=== PATIENT | male | born 1965 | race Caucasian/White ===

== ENCOUNTER 2023-01-29 09:39 | Outpatient (OUT) | payer SELFPAY ==
[2023-01-29 10:44] LABS: Basophils Absolute Auto 0.1 10^3/uL (0.0-0.1); Basophils Percent Auto 0.9 % (0.2-2.0); Eosinophils Absolute Auto 0.1 10^3/uL (0.0-0.7); Eosinophils Percent Auto 2.1 % (0.9-7.0); Hematocrit 42.4 % (42.0-54.0); Hemoglobin 14.5 g/dL (14.0-18.0); Immature Granulocytes Abs Auto 0.01 10^3/uL (0.00-0.03); Immature Granulocytes Pct Auto 0.2 % (0.0-0.5); Lymphocytes Absolute Auto 2.1 10^3/uL (1.2-3.8); Lymphocytes Percent Auto 35.8 % (20.5-60.0); Mean Corpuscular HGB Conc 34.2 g/dL (29.9-35.2); Mean Corpuscular Hemoglobin 30.8 pg (25.9-34.0); Mean Platelet Volume 10.3 fL (9.5-13.5); Monocytes Absolute Auto 0.5 10^3/uL (0.3-0.8); Monocytes Percent Auto 7.9 % (1.7-12.0); Neutrophils Absolute Auto 3.1 10^3/uL (1.4-6.5); Neutrophils Percent Auto 53.1 % (43.0-75.0); Platelet Count 204 10^3/uL (150-450); Red Blood Count 4.71 10^6/uL (4.70-6.10); Red Cell Distribution Width 12.4 % (11.0-15.0); White Blood Count 5.8 10^3/uL (4.0-11.0)
[2023-01-29 10:47] LABS: Estimated Average Glucose 114 mg/dL; Glycohemoglobin A1C 5.6 % (4.5-6.2)
[2023-01-29 10:52] LABS: Alanine Aminotransferase 23 U/L (16-63); Albumin Globulin Ratio 1.1; Albumin Level 3.8 g/dL (3.4-5.0); Alkaline Phosphatase 70 U/L (46-116); Anion Gap 10.1; Aspartate Amino Transferase 18 U/L (15-37); BUN Creatinine Ratio 14.6; Bilirubin Total 0.5 mg/dL (0.2-1.0); Carbon Dioxide 30.5 mmol/L (21.0-32.0); Chloride 102 mmol/L (98-107); Chol HDL Ratio 3.2; Cholesterol 185 mg/dL (<=200); Estimated GFR (African America >60 (>=60); Estimated GFR (Non-African Ame >60 (>=60); Free T3 3.49 pg/mL (2.18-3.98); Globulin 3.5 g/dL; Glucose 93 mg/dL (74-106); HDL Cholesterol 57 mg/dL (40-60); Potassium 3.6 mmol/L (3.5-5.1); Sodium 139 mmol/L (136-145); Thyroid Stimulating Hormone 2.704 uIU/mL (0.358-3.740); Total Protein 7.3 g/dL (6.4-8.2); Triglycerides 190 mg/dL (<=150); Uric Acid 5.3 mg/dL (3.5-7.2)
[2023-01-29 11:09] LABS: Prostate Specific Antigen Scrn 0.55 ng/mL (<=4.00)
[2023-01-30 10:13] LABS: Insulin 5.9 uIU/mL (2.6-24.9)
== END 2023-01-29 09:40 | disposition home or self-care (01) ==
LOC: LAB 09:47
PROVIDERS: PCP Nurse Practitioner Family; Visit Provider Nurse Practitioner Family
DX: Z00.00 Encounter for general adult medical examination without abnormal findings (principal); Z12.5 Encounter for screening for malignant neoplasm of prostate
CPT/HCPCS: 36415; 80053; 80061; 83036; 83525; 84436; 84443; 84481; 84550; 85025; G0103

== ENCOUNTER 2023-04-16 13:27 | Outpatient (OUT) | payer BC, SELFPAY ==
--- NOTE | 2023-04-16 13:36 | MR_ITS ---
The [address] [address] Patient Name: EDISON MÉNDEZ MRN: [id number] date: 1965 Sex: M Assigned Patient Location: MRI Current Patient Location: MRI Accession/Order Number: [id number] Exam Date: 04/16/2023 13:45 Report Date: 04/16/2023 14:40 At the request of: SHRADDHA ROSARIO Procedure: MR head/brain wo con EXAM: MR head/brain wo con CLINICAL INDICATION: Headache R51.9 COMPARISON: None TECHNIQUE/PROTOCOL: Standard noncontrast protocol brain MRI performed (Sagittal T1 with axial T1, T2, GRE, FLAIR, and diffusion-weighted imaging). FINDINGS: No restricted diffusion, extra-axial fluid collection, hydrocephalus, midline shift, or other mass effect. Intracranial flow voids are maintained. Normal midline structures. Normal marrow signal. No soft tissue abnormalities. Trace scattered paranasal sinus mucosal thickening. Scant right mastoid effusion. MR/MR head/brain wo con IMPRESSION: No acute intracranial process. Electronically authenticated by: ABBY BRENNER Date: 04/16/2023 14:40
--- NOTE | 2023-04-16 13:37 | US_ITS ---
[address] [address] Patient Name: EDISON MÉNDEZ MRN: [id number] date: 1965 Sex: M Assigned Patient Location: MRI Current Patient Location: MRI Accession/Order Number: [id number] Exam Date: 04/16/2023 14:15 Report Date: 04/16/2023 15:47 At the request of: SHRADDHA ROSARIO Procedure: US carotid duplex BI EXAMINATION: US carotid duplex BI HISTORY: Essential Hypertension I10 COMPARISON: No relevant comparison available. TECHNIQUE: Duplex Doppler ultrasound analysis of carotid and vertebral arteries. . Bilateral carotid arterial duplex examination was performed using B-mode, color flow and spectral analysis. Carotid stenosis is reported according to validated velocity parameters, similar to NASCET criteria. FINDINGS: RIGHT CAROTID ARTERY No atherosclerotic plaque Subclavian: PSV: 61.9 cm/s cm/s EDV: 5.3 cm/s cm/s CCA: Prox: PSV: 54.5 cm/s cm/s EDV: 18.2 cm/s cm/s Mid: PSV: 83.1 cm/s cm/s EDV: 27.0 cm/s cm/s Distal: PSV: 72.1 cm/s cm/s EDV: 28.1 cm/s cm/s BULB: PSV: 52.3 cm/s cm/s EDV: 20.4 cm/s cm/s ICA: Prox: PSV: 91.4 cm/s cm/s EDV: 31.7 cm/s cm/s Mid: PSV: 64.0 cm/s cm/s EDV: 25.2 cm/s cm/s Distal: PSV: 76.9 cm/s cm/s EDV: 41.3 cm/s cm/s ECA: PSV: 74.3 cm/s cm/s EDV: 19.3 cm/s cm/s VERTEBRAL: PSV: 36.9 cm/s cm/s EDV: 17.1 cm/s cm/s, antegrade ICA/CCA ratio: PSV: 1.3 EDV: 1.1 LEFT CAROTID ARTERY No atherosclerotic plaque Subclavian: PSV: 87.5 cm/s cm/s EDV: 7.2 cm/s CCA: Prox: PSV: 97.8 cm/s cm/s EDV: 30.5 cm/s Mid: PSV: 72.0 cm/s cm/s EDV: 21.5 cm/s Distal: PSV: 71.9 cm/s cm/s EDV: 29.2 cm/s BULB: PSV: 72.1 cm/s cm/s EDV: 23.2 cm/s ICA: Prox: PSV: 63.3 cm/s cm/s EDV: 33.7 cm/s Mid: PSV: 59.0 cm/s cm/s EDV: 30.2 cm/s Distal: PSV: 59.8 cm/s cm/s EDV: 35.4 cm/s ECA: PSV: 56.7 cm/s cm/s EDV: 13.8 cm/s VERTEBRAL: PSV: 33.6 cm/s cm/s EDV: 19.3 cm/s , antegrade ICA/CCA ratio: PSV: 1.0 EDV: 0.8 US/US carotid duplex BI IMPRESSION: 0-49% flow stenosis bilateral internal carotid arteries Spectral Doppler US Thresholds (Reference: Robbin EG, et al. Radiology 2000; 214:247-252) Stenosis (%) PSV (cm/sec) VICA/VCCA 0-49 <150 <2.5 50-69 150-225 2.5-4.0 >70 >225 >4.0 Electronically authenticated by: ANDREA BOYD Date: 04/16/2023 15:47
== END 2023-04-16 13:28 | disposition home or self-care (01) ==
LOC: MRI 13:28
PROVIDERS: PCP Nurse Practitioner Family; Visit Provider Nurse Practitioner Family
DX: R51.9 Headache, unspecified (principal); I10 Essential (primary) hypertension
CPT/HCPCS: 70551; 93880

== ENCOUNTER 2023-04-25 07:05 | Outpatient (OUT) | payer BC, SELFPAY ==
--- NOTE | 2023-04-25 06:15 | NM_ITS ---
Patient Name: EDISON MÉNDEZ MR#: [id number] : 1965 Exam Date: 04/25/2023 Ordering Doctor: SHRADDHA ROSARIO CNP RADIOLOGY REPORT PROCEDURE: NM RODOLFO PERF SPECT REST STR COMPARISON: None. INDICATIONS: SHORTNESS OF BREATH, HYPERTENSION TECHNIQUE: Exam Description: Stress/Rest one day protocol gated SPECT Rest Imagin.1 mCi Tc-99m Cardiolite IV on 04/25/2023 Stress Imaging 30.8 mCi Tc-99m Cardiolite IV on 04/25/2023 Exercise Protocol: John Heart Rate (bpm): Rest: 68 Max: 153 PMHR: 93 Blood Pressure: Rest: 136/94 Max: 196/112 Exercise Time: Minutes: 7 Seconds: 49 Stage Reached: Stage: 3 Mets 10.1 Symptoms: Rest and peak stress ECG findings were normal and the exercise portion of the study was normal per attending physician Dr. Medeiros . For more details please see separate cardiac stress test report. FINDINGS: QUALITY OF STUDY: Good. PERFUSION DEFECT: None. LOCATION: N/A SIZE: N/A. SEVERITY: N/A. TYPE: N/A. WALL MOTION: LV SIZE: Normal. 69 mL. TID / TCD: None; 0.8 LVEF: Normal. Calculated EF 65%. SUMMARY: Myocardial perfusion imaging study is NORMAL. CONCLUSION: 1. No perfusion abnormality or evidence of reversible ischemia 2. Normal exercise test Dictated by: Colby Khoury MD on 04/26/2023 at 08:11 Approved by: Colby Khoury MD on 04/26/2023 at 08:17
--- OUTSIDE RECORDS SUMMARY | 2023-04-25 07:07 | XMS_ITS | CCD ---
Author Name Unknown Address [address] [place] [address] Organization [facility] Care Team Providers Care Programmer Operator Numerical Control Name Role Phone MARLENE, SHRADDHA Admitting Unavailable MARLENE, SHRADDHA Attending Unavailable MARLENE, SHRADDHA Primary Care Unavailable MARLENE, SHRADDHA Consulting Unavailable MARLENE, SHRADDHA Admitting Unavailable MARLENE, SHRADDHA Attending Unavailable MARLENE, SHRADDHA Primary Care Unavailable DR SEAN SEVILLA Consulting Unavailable MARLENE, SHRADDHA Consulting Unavailable MARLENE, SHRADDHA Admitting Unavailable MARLENE, SHRADDHA Attending Unavailable MARLENE, SHRADDHA Primary Care Unavailable Allergies Allergy Classification Reported Allergen(s) Allergy Type Date of Onset Reaction(s) Facility (2 sources) Amino Acids Drug Allergy [facility] Repository Problems Active Problems Problem Classification Problem Date Documented Da te Episodic/Chronic Abdominal pain (1 source) Left lower quadrant pain; Translations: [LEFT LOWER QUADRANT PAIN] Onset: 05-14-2022 Episodic Other non-traumatic joint disorders (4 sources) Pain in right shoulder; Translations: [PAIN IN RIGHT SHOULDER] Onset: 05-12-2022 Episodic Past or Other Problems Problem Classification Problem Date Documented Da te Episodic/Chronic Other screening for suspected conditions (not mental disorders or infectious disease) (1 source) Encounter for screening for malignant neoplasm of prostate; Translations: [ENC SCREEN MALIG NEOPLASM PROSTATE] Onset: 01-29-2022 Episodic Results Test Name Value Interpretation Reference Range Facil ity Physician Referralon 023 Physician Referral [id number] #[id number] Normal [facility] Provider Letteron 11-20-2022 Provider Letter November 20, 2022 GIL[address]ERT M[address]Z [address] [place] [address] : 1965 Dear Gilbert, We have been trying to reach you with no success. It is important that you return our call regarding your care upon receiving this letter. Also, at the time of your call, please provide us with your current information. Thank you for your prompt attention to this matter. Sincerely, General Surgery [place] Dr. Wayne Riley [phone] Normal [facility] US EXT NON VASC LIMITED LTon 05-12-2022 US EXT NON VASC LIMITED LT EXAMINATION: US EXT NON VASC LIMITED LT HISTORY: Left lower quadrant pain COMPARISON: No relevant comparison available. FINDINGS: Percutaneous ultrasound evaluation of right groin region demonstrates a small hernia containing fat or bowel which is produced during Valsalva. An exact defect within the lower abdominal wall could not be identified. Incidental lymph nodes within left groin. IMPRESSION: 1. Small, mobile hernia within left groin which develops during Valsalva, and may contain fat or bowel. CT pelvis during Valsalva maneuver is recommended for further evaluation. Electronically authenticated by: SEAN SEVILLA Date: 2022-05-12 16:29 Normal [facility] INSULINon 01-27-2022 Insulin 9.7 uIU/mL Normal 2.6-24.9 [facility] Comment on above: Performed By: #### I NSULIN #### [facility] [address] [place] [address] Dr. Jackelyn Gonzalez CBC AUTO DIFFon 01-26-2022 BASO # 0.1 103/ul Normal 0.0-0.1 [facility] Comment on above: Performed By: #### C BC #### [facility] [address] [place] [address] Dr. Jackelyn Gonzalez Basophils/100 WBC (Bld) 0.9 % Normal 0.2-2.0 [facility] Comment on above: Performed By: #### C BC #### [facility] [address] [place] [address] Dr. Jackelyn Gonzalez EO # 0.1 103/ul Normal 0.0-0.7 [facility] Comment on above: Performed By: #### C BC #### [facility] [address] [place] [address] Dr. Jackelyn Gonzalez Eosinophils/100 WBC (Bld) 1.9 % Normal 0.9-7.0 [facility] Comment on above: Performed By: #### C BC #### [facility] [address] [place] [address] Dr. Jackelyn Gonzalez Erythrocyte distribution width (RBC) [Ratio] 13.0 % Normal 11.0-15.0 [facility] Comment on above: Performed By: #### C BC #### [facility] [address] [place] [address] Dr. Jackelyn Gonzalez Hematocrit (Bld) [Volume fraction] 44.6 % Normal 42.0-54.0 [facility] Comment on above: Performed By: #### C BC #### [facility] [address] [place] [address] Dr. Jaceklyn Gonzalez Hemoglobin (Bld) [Mass/Vol] 14.8 g/dL Normal 14.0-18.0 [facility] Comment on above: Performed By: #### C BC #### [facility] [address] [place] [address] Dr. Jackelyn Gonzalez IG # 0.01 10e3/ul Normal 0.00-0.03 [facility] Comment on above: Performed By: #### C BC #### [facility] [address] [place] [address] Dr. Jackelyn Gonzalez IG % 0.2 % Normal 0.0-0.5 [facility] Comment on above: Performed By: #### C BC #### [facility] [address] [place] [address] Dr. Jackelyn Gonzalez LYMPH # 2.3 103/ul Normal 1.2-3.8 [facility] Comment on above: Performed By: #### C BC #### [facility] [address] [place] [address] Dr. Jackelyn Gonzalez Lymphocytes/100 WBC (Bld) 39.4 % Normal 20.5-60.0 [facility] Comment on above: Performed By: #### C BC #### [facility] [address] [place] [address] Dr. Jackelyn Gonzalez MANUAL DIFF REQ NO Normal [facility] Comment on above: Performed By: #### C BC #### [facility] [address] [address] [address] Jackelyn Gonzalez MCH (RBC) [Entitic mass] 30.6 pg Normal 25.9-34.0 [facility] Comment on above: Performed By: #### C BC #### [facility] [address] [place] [address] Dr. Jackelyn Gonzalez MCHC (RBC) [Mass/Vol] 33.2 g/dL Normal 29.9-35.2 [facility] Comment on above: Performed By: #### C BC #### [facility] [address] [place] [address] Dr. Jackelyn Gonzalez MCV (RBC) [Entitic vol] 92.3 fL Normal 80.0-94.0 [facility] Comment on above: Performed By: #### C BC #### [facility] [address] [place] [address] Dr. Jackelyn Gonzalez MONO # 0.6 103/ul Normal 0.3-0.8 [facility] Comment on above: Performed By: #### C BC #### [facility] [address] [place] [address] Dr. Jackelyn Gonzalez Monocytes/100 WBC (Bld) 9.7 % Normal 1.7-12.0 [facility] Comment on above: Performed By: #### C BC #### [facility] [address] [place] [address] Dr. Jackelyn Gonzalez NEUT # 2.8 103/ul Normal 1.4-6.5 [facility] Comment on above: Performed By: #### C BC #### [facility] [address] [place] [address] Dr. Jackelyn Gonzalez Neutrophils/100 WBC (Bld) 47.9 % Normal 43.0-75.0 [facility] Comment on above: Performed By: #### C BC #### [facility] [address] [place] [address] Dr. Jackelyn Gonzalez Platelet mean volume (Bld) [Entitic vol] 10.1 fL Normal 9.5-13.5 [facility] Comment on above: Performed By: #### C BC #### [facility] [address] [address] [address] Jackelyn Gonzalez PLT 236 103/ul Normal 150-450 [facility] Comment on above: Performed By: #### C BC #### [facility] [address] [address] [address] Jackelyn Gonzalez RBC 4.83 106/ul Normal 4.70-6.10 [facility] Comment on above: Performed By: #### C BC #### [facility] [address] [address] [address] Jackelyn Gonzalez WBC 5.8 103/ul Normal 4.0-11.0 [facility] Comment on above: Performed By: #### C BC #### [facility] [address] [place] [address] Dr. Jackelyn Gonzalez GLYCOHEMOGLOBIN A1Con 2021 ADA RECOMMENDATION SEE BELOW Normal [facility] Comment on above: Result Comment: ADA RECOMMENDED LIMIT 4.0 - 6.0 ADA THERAPEUTIC TARGET < 7.0 ACTION SUGGESTED > 7.0 Performed By: #### A 1C #### [facility] [address] [place] [address] Dr. Jackelyn Gonzalez Glucose [Mass/Vol] 117 mg/dL Normal [facility] Comment on above: Performed By: #### A 1C #### [facility] [address] [place] [address] Dr. Jackelyn Gonzalez HbA1c (Bld) [Mass fraction] 5.7 % Normal 4.5-6.2 [facility] Comment on above: Performed By: #### A 1C #### [facility] [address] [place] [address] Dr. Jackelyn Gonzalez LIPID PROFILEon 01-26-2022 CHOL-HDL RATIO NORM SEE BELOW Normal [facility] Comment on above: Result Comment: 3.3 - 4.4 LOW RISK 4.4 - 7.1 AVERAGE RISK 7.1 - 11.0 MODERATE RISK >11.0 HIGH RISK Performed By: #### L IPID, CMP, URIC #### [facility] [address] [address] [address] Jackelyn Gonzalez Cholesterol [Mass/Vol] 208 mg/dL Critically high <=200 [facility] Comment on above: Performed By: #### L IPID, CMP, URIC #### [facility] [address] [address] [address] Jackelyn Gonzalez Cholesterol in HDL [Mass/Vol] 55 mg/dL Normal 40-60 [facility] Comment on above: Performed By: #### L IPID, CMP, URIC #### [facility] [address] [address] [address] Jackelyn Gonzalez Cholesterol in LDL [Mass/Vol] 111.4 mg/dL Normal [facility] Comment on above: Performed By: #### L IPID, CMP, URIC #### [facility] [address] [address] [address] Jackelyn Gonzalez Cholesterol.total/Cho lesterol in HDL [Mass ratio] 3.8 {ratio} Normal [facility] Comment on above: Performed By: #### L IPID, CMP, URIC #### [facility] [address] [address] [address] Jackelyn Gonzalez HDL NORMAL > or = 60 mg/dl - LOW CARDIOVASCULAR RISK <40 mg/dl - HIGH CARDIOVASCULAR RISK Normal [facility] Comment on above: Performed By: #### L IPID, CMP, URIC #### [facility] [address] [address] [address] Jackelyn Gonzalez LDL CALC NORMAL SEE BELOW Normal [facility] Comment on above: Result Comment: <100 mg/dl OPTIMAL 100 - 129 mg/dl NEAR OR ABOVE OPTIMAL 130 - 159 mg/dl BORDERLINE HIGH 160 - 189 mg/dl HIGH >190 mg/dl VERY HIGH Performed By: #### L IPID, CMP, URIC #### [facility] [address] [address] [address] Jackelyn Gonzalez Triglyceride [Mass/Vol] 208 mg/dL Critically high <=150 [facility] Comment on above: Performed By: #### L IPID, CMP, URIC #### [facility] [address] [address] [address] Jackelyn Gonzalez VLDL CALC 41.6 mg/dL Normal [facility] Comment on above: Performed By: #### L IPID, CMP, URIC #### [facility] [address] [address] [address] Jackelyn Gonzalez PROF 14(COMP METB)on 022 Albumin [Mass/Vol] 3.6 g/dL Normal 3.4-5.0 [facility] Comment on above: Performed By: #### L IPID, CMP, URIC #### [facility] [address] [place] [address] Dr. Jackelyn Gonzalez Albumin/Globulin [Mass ratio] 1.0 {ratio} Normal [facility] Comment on above: Performed By: #### L IPID, CMP, URIC #### [facility] [address] [place] [address] Dr. Jackelyn Gonzalez ALP [Catalytic activity/Vol] 70 U/L Normal 46-116 [facility] Comment on above: Performed By: #### L IPID, CMP, URIC #### [facility] [address] [place] [address] Dr. Jackelyn Gonzalez ALT [Catalytic activity/Vol] 29 U/L Normal 16-63 [facility] Comment on above: Performed By: #### L IPID, CMP, URIC #### [facility] [address] [place] [address] Dr. Jackelyn Gonzalez Anion gap [Moles/Vol] 9.1 mmol/L Normal [facility] Comment on above: Performed By: #### L IPID, CMP, URIC #### [facility] [address] [place] [address] Dr. Jackelyn Gonzalez AST [Catalytic activity/Vol] 19 U/L Normal 15-37 [facility] Comment on above: Performed By: #### L IPID, CMP, URIC #### [facility] [address] [place] [address] Dr. Jackelyn Gonzalez Bilirubin [Mass/Vol] 0.4 mg/dL Normal 0.2-1.0 [facility] Comment on above: Performed By: #### L IPID, CMP, URIC #### [facility] [address] [address] [address] Jackelyn Gonzalez Calcium [Mass/Vol] 9.1 mg/dL Normal 8.5-10.1 [facility] Comment on above: Performed By: #### L IPID, CMP, URIC #### [facility] [address] [address] [address] Jackelyn Gonzalez Chloride [Moles/Vol] 103 mmol/L Normal 98-107 [facility] Comment on above: Performed By: #### L IPID, CMP, URIC #### [facility] [address] [address] [address] Jackelyn Gonzalez CO2 [Moles/Vol] 31.7 mmol/L Normal 21.0-32.0 [facility] Comment on above: Performed By: #### L IPID, CMP, URIC #### [facility] [address] [place] [address] Dr. Jackelyn Gonzalez Creatinine [Mass/Vol] 0.93 mg/dL Normal 0.70-1.30 [facility] Comment on above: Performed By: #### L IPID, CMP, URIC #### [facility] [address] [address] [address] Jackelyn Gonzalez EGFR-AF TAJIK >60 Normal >=60 [facility] Comment on above: Performed By: #### L IPID, CMP, URIC #### [facility] [address] [address] [address] Jackelyn Gonzalez EGFR-NON AF TAJIK >60 Normal >=60 [facility] Comment on above: Performed By: #### L IPID, CMP, URIC #### [facility] [address] [address] [address] Jackelyn Gonzalez Globulin (S) [Mass/Vol] 3.7 g/dL Normal [facility] Comment on above: Performed By: #### L IPID, CMP, URIC #### [facility] [address] [address] [address] Jackelyn Gonzalez Glucose [Mass/Vol] 89 mg/dL Normal 74-[address] [facility] Comment on above: Performed By: #### L IPID, CMP, URIC #### [facility] [address] [address] [address] Jackelyn Gonzalez Potassium [Moles/Vol] 3.8 mmol/L Normal 3.5-5.1 [facility] Comment on above: Performed By: #### L IPID, CMP, URIC #### [facility] [address] [address] [address] Jackelyn Gonzalez Protein [Mass/Vol] 7.3 g/dL Normal 6.4-8.[address] [facility] Comment on above: Performed By: #### L IPID, CMP, URIC #### [facility] [address] [place] [address] Dr. Jackelyn Gonzalez Sodium [Moles/Vol] 140 mmol/L Normal 136-[address] [facility] Comment on above: Performed By: #### L IPID, CMP, URIC #### [facility] [address] [place] [address] Dr. Jackelyn Gonzalez Urea nitrogen [Mass/Vol] 21.0 mg/dL Critically high 7.0-18.0 [facility] Comment on above: Performed By: #### L IPID, CMP, URIC #### [facility] [address] [place] [address] Dr. Jackelyn Gonzalez Urea nitrogen/Creatinine [Mass ratio] 22.6 mg/mg Normal [facility] Comment on above: Performed By: #### L IPID, CMP, URIC #### [facility] [address] [place] [address] Dr. Jackelyn Gonzalez URIC ACID SERUMon 01-26-2022 Urate [Mass/Vol] 5.9 mg/dL Normal 3.5-7.2 [facility] Comment on above: Performed By: #### L IPID, CMP, URIC #### [facility] [address] [place] [address] Dr. Jackelyn Gonzalez Encounters Encounter Date Encounter Type Care Provider Facility Start: 05-31-2022 ambulatory SHRADDHA ROSARIO Facility: [facility] Start: 05-12-2022 End: 05-13-2022 ambulatory SHRADDHA ROSARIO Facility:[facility] Start: 01-29-2022 Encounter for genera l adult medical examination without abnormal findings SHRADDHA ROSARIO [facility] Start: 01-26-2022 End: 01-27-2022 ambulatory SHRADDHA ROSARIO Facility:[facility] Start: 01-26-2022 End: 01-27-2022 Encounter for general adult medical examination without abnormal findings SHRADDHA ROSARIO Facility:[facility] Procedures Date Procedure Procedure Detail Performing Clinician Start: 01-26-2022 PSA screening SHRADDHA VELA Comment on above: Performed By: #### P [facility] #### [facility] [address] [address] [address] Jackelyn Gonzalez Payers Date Payer Category Payer Unknown [id number] [id number] [id number] 1965 Unknown [id number] 1965 Unknown [id number] 1957 Unknown [id number] Clinical Note 05-12-2022 Note Date & Type Note Facility 05-12-2022 Note PROCEDURE: XR SHOULD ER RT 2V or > HISTORY: Pain of right shoulder joint COMPARISON: None. FINDINGS: BONES:Small degenerative osteophytes along the undersurface of acromioclavicular joint. No fracture, dislocation, or bone lesion. SOFT TISSUES:No visible soft tissue swelling. EFFUSION:None visible. OTHER: Negative. IMPRESSION: 1. No acute bone abnormality. 2. Mild degenerative changes of the acromioclavicular joint. Electronically authenticated by: SEAN SEVILLA Date: 2022-05-12 16:21 [facility] Summary Purpose Family History No Family History Records FoundNo Family History Records Found Advance Directives No Advanced Directives Records FoundNo Advanced Directives Records Found Additional Source Comments (unrecognized sect ion and content) No Status Records FoundNo Status Records Found INFORMATION SOURCE (unrecogn ized section and content) DATE CREATED AUTHOR 05/29/2022 [facility] DATE CREATED AUTHOR AUTHOR'S ORGANIZ ATION 01/31/2023 [facility] FOR RECORDS PERTAINING TO PATIENTS WHO ARE OR HAVE BEEN ENROLLED IN A CHEMICAL DEPENDENCY/SUBSTANCEABUSE PROGRAM, SOME INFORMATION MAY BE OMITTED. This clinical summary was aggregated from multiple sources. Caution should be exercised in using it in the provision of clinical care. This summary normalizes information from multiple sources, and as a consequence, information in this document may materially change the coding, format and clinical context of patient data. In addition, data may be omitted in some cases. CLINICAL DECISIONS SHOULD BE BASED ON THE PRIMARY CLINICAL RECORDS. [facility] [employer] [facility]. provides no warranty or guarantee of the accuracy or completeness of information in this document.
--- NOTE | 2023-04-25 17:44 | PM.STRESS ---
Stress Test Stress Test Requesting physician: SHRADDHA ROSARIO Procedure: Exercise Cardiolite stress test General Information: Reason for Stress Test: Dyspnea Cardiac History and Risk Factors: Denies any Resting 12 - Lead Electrocardiogram: Rate & rhythm: Normal sinus at a rate of 68. [place]: Normal T-waves: Inverted in III ST-segments: Normal orientation Stress Test: Protocol: John protocol was followed, with injection of Cardiolite once target heart rate was achieved. Exercise capacity: Good exercise capacity. Total exercise time of 7 minutes 49 seconds reached John stage 3 at 3.4MPH, 14% grade, & 10.1 METs. Blood pressure: Initial: 136/94, Maximum: 196/112, Recovery: 142/102 Rate & rhythm: Patient remained in sinus rhythm during the exercise and recovery portions of the study.? The maximum heart rate was 153, which was 93% of the maximum predicted heart rate 164. PVCs were noted. ST-segments & T-waves: There were no T-wave changes and no ST-segment changes when compared to the baseline EKG. Patient response/symptoms: Patient had dyspnea with exertion, which is about the same as he normally has. Interpretation: Normal exercise stress test without electrocardiographical evidence of ischemia. No chest pain. Cardiolite imaging interpretation will be reported separately. Clinical correlation required.
== END 2023-04-25 07:06 | disposition home or self-care (01) ==
LOC: NM 07:05
PROVIDERS: PCP Nurse Practitioner Family; Visit Provider Nurse Practitioner Family
DX: R06.02 Shortness of breath (principal)
CPT/HCPCS: 78452; 93017; A9500

== ENCOUNTER 2024-07-29 09:11 | Outpatient (OUT) | payer BC, SELFPAY | END 2024-07-29 09:12 | disposition home or self-care (01) | LOC: PST 09:11 | PROVIDERS: PCP Nurse Practitioner Family; Visit Provider Surgery | DX: Z01.818 Encounter for other preprocedural examination (principal); Z12.11 Encounter for screening for malignant neoplasm of colon; Z80.0 Family history of malignant neoplasm of digestive organs ==

== ENCOUNTER 2024-07-31 14:05 | Outpatient (OUT) | payer BC, SELFPAY | END 2024-07-31 14:06 | disposition home or self-care (01) | LOC: PST 14:05 | PROVIDERS: PCP Nurse Practitioner Family; Visit Provider Surgery | DX: Z01.818 Encounter for other preprocedural examination (principal); Z12.11 Encounter for screening for malignant neoplasm of colon; Z80.0 Family history of malignant neoplasm of digestive organs ==

== ENCOUNTER 2024-08-06 06:13 | Day surgery (SDC) | payer BC, SELFPAY ==
--- NOTE | 2024-08-06 | OP_ITS ---
OPERATION DATE: 08/06/2024 PREOPERATIVE DIAGNOSIS: Family history of colon cancer, colorectal screening. POSTOPERATIVE DIAGNOSIS: Mild sigmoid diverticulosis. PROCEDURE: Colonoscopy to cecum. SURGEON: Wayne Riley M.D. ANESTHESIA: Monitored anesthesia care. ESTIMATED BLOOD LOSS: Zero. INDICATIONS AND CONSENT: Patient is a 59-year-old male with a family history of colon cancer in his mother, diagnosed at a young age, presents for screening colonoscopy. Indications, risks, benefits, alternatives of proceeding with colonoscopy were explained extensively to the patient, including the risks of bleeding, colon perforation or anesthetic complications. All of his questions were answered. Informed consent was obtained. PROCEDURE: Patient brought to the operating room, placed in the left lateral decubitus position. Monitored anesthesia care was provided. Rectal exam was performed which revealed no masses or blood. The scope was inserted into the anal canal. Under direct visualization was advanced. It was advanced to the cecum where cecal markings were clearly identified. There was noted to be a good prep. Upon withdrawal of the scope, mucosal surfaces were carefully examined. There were no mass lesions or polyps. No inflammatory changes or ulcerations. There was mild sigmoid diverticulosis without inflammatory changes or scarring. The scope was retroflexed in the anal canal. There were prominent rectal veins. No significant hemorrhoidal disease. No old or new blood. The scope was then withdrawn. Patient tolerated procedure well, was sent to recovery room in good condition. Follow up colonoscopy should be in five years due to family history. CC: Bree Platt, ELISA SWANN
[2024-08-06 06:35] VITALS: BMI 28.2
[2024-08-06 06:58] VITALS: BP 129/78; PULSE 87; TEMP 35.9; O2SAT 94
[2024-08-06] MEDS: 0.9 % SODIUM CHLORIDE 500 ML 50 ML IV (07:03)
[2024-08-06 07:44] VITALS: BP 93/66; PULSE 80; TEMP 36.1; O2SAT 94
[2024-08-06 07:59] VITALS: BP 100/75; PULSE 89; O2SAT 95
[2024-08-06 08:14] VITALS: BP 111/75; PULSE 89; TEMP 36.1; O2SAT 95
== END 2024-08-06 08:14 | disposition home or self-care (01) ==
PROVIDERS: PCP Nurse Practitioner Family; Visit Provider Surgery
PROC: (CPT 812; principal; 2024-08-06 07:30)
DX: Z12.11 Encounter for screening for malignant neoplasm of colon (principal); K57.30 Diverticulosis of large intestine without perforation or abscess without bleeding; Z80.0 Family history of malignant neoplasm of digestive organs; I10 Essential (primary) hypertension; K21.9 Gastro-esophageal reflux disease without esophagitis; Z90.49 Acquired absence of other specified parts of digestive tract; Z87.891 Personal history of nicotine dependence
CPT/HCPCS: 45378; J2371; J2704